=== PATIENT | male | born 1935 | race Caucasian/White ===

== ENCOUNTER 2022-02-20 05:27 | Inpatient (IN) | payer OTHER, BC ==
[~2022-02-20] VITALS: Ht 182.9 cm; Wt 81.6 kg
[~2022-02-20 05:27] MED LIST: APIX5TAB4 PO; CARB1TAB21 PO; CARV3.1246 PO; FURO-150 PO; MIRA50TA PO; PIPE3.379 IV; POLY17PO4 PO; POTA8TAB66 PO; PRAV10TA37 PO
[2022-02-20 05:31] VITALS: BP_SYST 116
[2022-02-20] MEDS ORDERED: PRED10TA PO (05:36)
[2022-02-20] MEDS ORDERED: ATOR10TA68 PO (05:37)
[2022-02-20] MEDS ORDERED: MULT-1189 PO (05:41)
[2022-02-20] MEDS ORDERED: ACET325T PO (05:42)
--- NOTE | 2022-02-20 06:00 | NUR ---
PLACED TO RM 7 VIA GUERNEY, AWAKE AND ALERT RESPONSIVE BUT SLURRED SPEECH.FOLLOWS COMMANDS AND APPROPRIATE TO SIMPLE COMMANDS, NOT IN RESP DISTRESS, ON ROOM AIR, CONNECTED TO BEDSIDE MONITOR, VS TAKEN AND RECORDED, INITIAL ASSESSMENT COMPLETED, WITH MULTIPLE BRUISE ON CHEST, BUE,BLE, SKIN TEARS ON BUE.ABD SOFT GOOD BS, TO ASSESS BACK FOR PRESSURE AREAS. SKIN VERY FRAGILE.
--- NOTE | 2022-02-20 06:15 | NUR ---
IV START AT RT FA G22 S/L.BLOOD COLLECTED AND SENT TO LAB, [id number]
--- NOTE | 2022-02-20 06:24 | NUR ---
0617 DR FERRERA IN THE ROOM SPOKE TO .
--- NOTE | 2022-02-20 06:24 | NUR ---
0620 DR JUAREZ IN THE ROOM AND EXAMINING PATIENT.
[2022-02-20 07:04] LABS: BASOPHILS % (AUTO) 0.5 % (0.0-2.0); EOSINOPHILS # (AUTO) 0.3 K/uL (0.0-0.4); EOSINOPHILS % (AUTO) 4.4 % (0.0-4.0); HEMATOCRIT 33.6 % (36-54); HEMOGLOBIN 11.2 g/dL (14.0-18.0); LYMPHOCYTES % (AUTO) 13.7 % (20.5-51.5); MEAN CORPUSCULAR HEMOGLOBIN 30 pg (27-31); MEAN CORPUSCULAR HGB CONC 33 % (32-36); MEAN CORPUSCULAR VOLUME 90 fL (79.0-98.0); MONOCYTES # (AUTO) 0.6 K/uL (0.0-1.0); NEUTROPHILS # (AUTO) 5.4 K/uL (1.8-7.7); NEUTROPHILS % (AUTO) 73.4 % (40.0-70.0); PLATELET COUNT (AUTO) 223 K/uL (130-430); RED BLOOD CELL COUNT(AUTO) 3.72 MIL/uL (4.2-6.2); RED CELL DISTRIBUTION WIDTH 17.1 % (9.0-15.0); WHITE BLOOD COUNT (AUTO) 7.4 K/uL (4.8-10.8)
[2022-02-20 07:08] LABS: ANION GAP 9 (5-15); CHLORIDE 110 mmol/L (98-107); CREATININE 0.71 mg/dL (0.55-1.30); GLUCOSE 135 mg/dL (70-99); SODIUM SERUM 145 mmol/L (136-145); UREA NITROGEN, BLOOD 21 mg/dL (8-21)
[2022-02-20 07:12] LABS: INR 1.3 (0.80-1.20); PROTHROMBIN TIME 13.1 SECS (9.5-12.5)
[2022-02-20] MEDS ORDERED: POTASSIUM CHLORIDE 20 MEQ/PKT PACKET PO ONE (07:15)
[2022-02-20] MEDS ORDERED: KCL 40 mEq in 100 mL (PREMIX) 100 ML IV ONE ×2 (07:15→08:15)
--- NOTE | 2022-02-20 07:21 | NUR ---
AWARE OF K+ RESULT, ORDERS PLACED.
--- NOTE | 2022-02-20 07:21 | NUR ---
REPORT RC'VD FROM OUTGOING NOC RN, ALL CARES ASSUMED. INTRODUCTION MADE TO PATIENT AND WHO REMAINS AT BEDSIDE.
[2022-02-20 07:25] LABS: ACETAMINOPHEN 1 ug/mL (1-30); ALANINE AMINOTRANSFERASE 0 U/L (12-78); ALBUMIN 2.1 g/dL (3.4-4.8); ASPARTATE AMINOTRANSFERASE 16 U/L (10-37); TOTAL BILIRUBIN 0.6 mg/dL (0.0-1.0)
[2022-02-20 07:26] LABS: C-REACTIVE PROTEIN QUANT 5.1 mg/dL (0-0.5)
[2022-02-20 07:27] LABS: POTASSIUM 2.7 mmol/L (3.5-5.1)
--- NOTE | 2022-02-20 07:49 | NUR ---
Assumed care of patient. Assessment completed, patient in no signs of acute distress. Removed dressings, visualized wounds. Pressure injury with skin breakdown visualized on the patient's coccyx. Mepilex dressings applied. Mepilex dressings applied to skin tears located on L heller, L upper/mid thigh, L wrist, L lateral forearm, R hand, R wrist.
[2022-02-20 08:00] LABS: ACETONE, SERUM NEGATIVE (NEGATIVE)
[2022-02-20] MEDS ORDERED: D5/0.45 NS 1,000 ML IV ONE (08:15)
--- NOTE | 2022-02-20 08:22 | NUR ---
ORDERS RCVD FOR ADMISSION FROM DR. SUE, ORDERS PLACED AND MD TO COME AND SEE PATIENT ONCE ADMITTED TO FLOOR. CHARGE AWARE OF ADMIT. PENDING BED PLACEMENT.
--- NOTE | 2022-02-20 08:22 | NUR ---
Admit bed requested Patient will be admitted to care of Dr. Munroe Admitted to unit. Diagnosis Inpatient (Yes or No) Observation (Yes or No) Orientation concerns or request close to nursing station (Yes or No) Covid Status On vent or bipap Isolation requirements Needs a sitter From Home (Yes or if No enter name of facility) SNF Requires Dialysis (Yes or No) Med Rec Completed (Yes of No)
--- NOTE | 2022-02-20 08:25 | NUR ---
Med rec completed
--- NOTE | 2022-02-20 08:26 | NUR ---
Covid and MRSA swab collected and brought to lab
--- NOTE | 2022-02-20 08:26 | NUR ---
Consent obtained from for Midline
--- NOTE | 2022-02-20 09:45 | NUR ---
PATIENT ADMITTED FROM ER, ARRIVED IN [facility], SPEECH IS SLURRED/GARBLED BUT PER REPORT PATIENT HAS PARKINSON DISEASE AND HISTORY OF POLIO A CHILD. ORDER FOR MIDLINE AND WOUND CARE IN AND CONSENT IN CHART, A/OX2, VITALS STABLE, MULTIPLE WOUNDS, WILL TAKE PICTURES, AIR LOSS MATTRESS IN PLACE. WILL PROPERLY ADMIT TO THE FLOOR.
--- NOTE | 2022-02-20 09:47 | NUR ---
Patient will be admitted to care of DR. SUE. Admitted to unit. Will go to room . Belongings list completed. Complete and up to date summary report printed. SBAR report to be given at bedside with opportunity for questions.
[2022-02-20] MEDS ORDERED: POTASSIUM CHLORIDE 40 MEQ, LIDOCAINE JECT 2% PF 100 MG 75 MG in 0.45% NS 250 ML IV ONE (10:00)
--- NOTE | 2022-02-20 15:00 | NUR ---
WAS UNAVAILABLE EARLIER, NOW AT BEDSIDE SO ABLE TO GO OVER PLAN OF CARE AND FINISH ADMISSION.
[2022-02-20] MEDS ORDERED: ACETAMINOPHEN 325 MG TABLET PO PRN (15:30)
[2022-02-20] MEDS ORDERED: ACETAMINOPHEN 650 MG SUPP.RECT RC PRN (15:45)
--- NOTE | 2022-02-20 15:59 | NUR ---
CONSULTATION PAGED/CALLED Reason for Consultation: [] ON TELE, AFIB, PACEMAKER Person Who was Notified: [] FAUSTO Consulting Physician: [] DR TO Rn Ed Specialty: [] CARDIO Ordering Physician: [] DR SUE
--- NOTE | 2022-02-20 16:02 | NUR ---
CONSULTATION PAGED/CALLED Reason for Consultation: [] POSS PNA Person Who was Notified: [] FAUSTO Consulting Physician: [] DR CHERRY LAUGHLIN Orthopedic Radiologic Technologist Specialty: [] ID Ordering Physician: [] DR SUE
[2022-02-20 16:21] VITALS: BP_SYST 110
[2022-02-20 21:00] VITALS: BP_SYST 119
[2022-02-20] MEDS: CARBIDOPA/LEVODOPA 25/100 MG TABLET PO SCH (21:00)
[2022-02-20] MEDS: APIXABAN 2.5 MG TABLET PO SCH (21:00)
[2022-02-20] MEDS ORDERED: PRAVASTATIN SODIUM 10 MG TABLET (PRAVACHOL) PO SCH (21:00)
[2022-02-20] MEDS: CARVEDILOL 3.125 MG TABLET (COREG) PO SCH (21:00)
[2022-02-21] VITALS: BP_SYST 98
--- NOTE | 2022-02-21 04:41 | NUR ---
MIDLINE IV ORDER GIVEN TO DESIGN MANAGER / .
[2022-02-21 06:10] LABS: BASOPHILS % (AUTO) 0.6 % (0.0-2.0); EOSINOPHILS # (AUTO) 0.3 K/uL (0.0-0.4); EOSINOPHILS % (AUTO) 3.9 % (0.0-4.0); HEMATOCRIT 32.6 % (36-54); LYMPHOCYTES # (AUTO) 1.3 K/uL (1.0-5.5); LYMPHOCYTES % (AUTO) 16.9 % (20.5-51.5); MEAN CORPUSCULAR HEMOGLOBIN 30 pg (27-31); MEAN CORPUSCULAR HGB CONC 34 % (32-36); MEAN CORPUSCULAR VOLUME 89 fL (79.0-98.0); MONOCYTES # (AUTO) 0.8 K/uL (0.0-1.0); MONOCYTES % (AUTO) 10.1 % (1.7-9.3); NEUTROPHILS # (AUTO) 5.2 K/uL (1.8-7.7); NEUTROPHILS % (AUTO) 68.5 % (40.0-70.0); PLATELET COUNT (AUTO) 245 K/uL (130-430); RED BLOOD CELL COUNT(AUTO) 3.66 MIL/uL (4.2-6.2); RED CELL DISTRIBUTION WIDTH 16.6 % (9.0-15.0); WHITE BLOOD COUNT (AUTO) 7.6 K/uL (4.8-10.8)
[2022-02-21 07:47] LABS: ALANINE AMINOTRANSFERASE 12 U/L (12-78); ALBUMIN 2.3 g/dL (3.4-4.8); ANION GAP 11 (5-15); ASPARTATE AMINOTRANSFERASE 11 U/L (10-37); CALCIUM 8.7 mg/dL (8.4-11.0); CHLORIDE 111 mmol/L (98-107); GLUCOSE 116 mg/dL (70-99); SODIUM SERUM 146 mmol/L (136-145); UREA NITROGEN, BLOOD 20 mg/dL (8-21)
[2022-02-21 07:59] LABS: POTASSIUM 2.6 mmol/L (3.5-5.1); TOTAL BILIRUBIN 0.8 mg/dL (0.0-1.0)
[2022-02-21] MEDS: CARBIDOPA/LEVODOPA 25/100 MG TABLET PO SCH ×3 (09:00→22:13)
[2022-02-21] MEDS: predniSONE 10 MG TABLET PO SCH (09:00)
[2022-02-21] MEDS ORDERED: NON-FORMULARY MEDICATION (Mirabegron (Myrbetriq) 50 MG) PO SCH (09:00)
[2022-02-21] MEDS ORDERED: POTASSIUM CHLORIDE 8 MEQ TABLET.SA PO SCH (09:00)
[2022-02-21] MEDS: MULTIVITS,CA,MINERALS/IRON/FA 1 TABLET PO SCH (09:00)
[2022-02-21] MEDS: APIXABAN 2.5 MG TABLET PO SCH ×2 (09:00→22:13)
[2022-02-21] MEDS: CARVEDILOL 3.125 MG TABLET (COREG) PO SCH ×2 (09:00→22:14)
[2022-02-21] MEDS: ATORVASTATIN 10 MG TABLET PO SCH (09:00)
[2022-02-21 11:32] VITALS: BP_SYST 100
[2022-02-21] MEDS ORDERED: KCL 40 mEq in 100 mL (PREMIX) 100 ML IV ONE (13:00)
[2022-02-21] MEDS: POTASSIUM CHLORIDE 20 mEq in 100 mL (PREMIX) 100 ML x 2 doses IV SCH ×3 (14:58→22:12)
[2022-02-21] MEDS ORDERED: FUROSEMIDE 20 MG/2 ML VIAL IVP ONE (15:30)
[2022-02-21 15:57] VITALS: BP_SYST 101
[2022-02-21] MEDS ORDERED: KCL 20 mEq in 100 mL (PREMIX) 100 ML IV ONE (17:00)
--- NOTE | 2022-02-21 18:06 | NUR ---
ST EVALUATION COMPLETED. ST TX NOT INDICATED AT THIS TIME. RECOMMEND PO DIET OF PUREE/NECTAR THICK LIQUIDS. 1:1 FEEDER AND FULL ASPIRATION PRECAUTIONS.
[2022-02-21 20:00] VITALS: BP_SYST 116
--- NOTE | 2022-02-21 22:51 | NUR ---
MID LINE IV PLACEMENT IMPLEMENTED @ THE BEDSIDE DANIA , NO BLEEDING NOTED tolerated .
[2022-02-21 23:44] VITALS: BP_SYST 128
--- NOTE | 2022-02-22 02:44 | NUR ---
Hourly Rounding patient awake on and off HOB elevated chest movement shallow also symmetrical bed alarm is on position change tolerated .
--- NOTE | 2022-02-22 03:30 | NUR ---
Turning & Reposition patient off loading with pillows kept clean also dry as needed Respirations Remain Regular also unlabored activity tolerated .
[2022-02-22 05:37] LABS: BASOPHILS % (AUTO) 0.6 % (0.0-2.0); EOSINOPHILS # (AUTO) 0.3 K/uL (0.0-0.4); HEMATOCRIT 30.6 % (36-54); HEMOGLOBIN 10.2 g/dL (14.0-18.0); LYMPHOCYTES # (AUTO) 0.9 K/uL (1.0-5.5); LYMPHOCYTES % (AUTO) 16.8 % (20.5-51.5); MEAN CORPUSCULAR HEMOGLOBIN 30 pg (27-31); MEAN CORPUSCULAR HGB CONC 33 % (32-36); MEAN CORPUSCULAR VOLUME 89 fL (79.0-98.0); MONOCYTES # (AUTO) 0.4 K/uL (0.0-1.0); MONOCYTES % (AUTO) 7.8 % (1.7-9.3); NEUTROPHILS # (AUTO) 3.7 K/uL (1.8-7.7); NEUTROPHILS % (AUTO) 68.8 % (40.0-70.0); PLATELET COUNT (AUTO) 209 K/uL (130-430); RED BLOOD CELL COUNT(AUTO) 3.43 MIL/uL (4.2-6.2); RED CELL DISTRIBUTION WIDTH 16.6 % (9.0-15.0); WHITE BLOOD COUNT (AUTO) 5.4 K/uL (4.8-10.8)
[2022-02-22 06:34] LABS: ANION GAP 9 (5-15); CALCIUM 7.7 mg/dL (8.4-11.0); CHLORIDE 111 mmol/L (98-107); CREATININE 0.66 mg/dL (0.55-1.30); GLUCOSE 127 mg/dL (70-99); SODIUM SERUM 147 mmol/L (136-145); UREA NITROGEN, BLOOD 18 mg/dL (8-21)
[2022-02-22 06:54] LABS: POTASSIUM 2.4 mmol/L (3.5-5.1)
--- NOTE | 2022-02-22 07:00 | NUR ---
OPENING NOTE RECEIVED SBAR FROM NIGHT RN, PATIENT IN BED RESPIRATIONS EVEN, NON LABORED. BED IN LOW AND LOCKED POSITION, CALL LIGHT WITHIN REACH.
[2022-02-22 08:00] VITALS: BP_SYST 90
--- NOTE | 2022-02-22 08:25 | NUR ---
HIGH ALERT NOTE: Called Dr. Munroe back at [phone] identified within the medical roster to verify physician authenticity.
[2022-02-22] MEDS ORDERED: COMMUNICATION ORDER XX ONE (08:30)
[2022-02-22] MEDS: CARVEDILOL 3.125 MG TABLET (COREG) PO SCH ×2 (09:00→21:00)
[2022-02-22] MEDS ORDERED: POTASSIUM CHLORIDE 20 MEQ TAB.PRT.SR PO ONE (09:30)
[2022-02-22] MEDS: CARBIDOPA/LEVODOPA 25/100 MG TABLET PO SCH ×3 (09:49→22:52)
[2022-02-22] MEDS: predniSONE 10 MG TABLET PO SCH (09:49)
[2022-02-22] MEDS: MULTIVITS,CA,MINERALS/IRON/FA 1 TABLET PO SCH (09:51)
[2022-02-22] MEDS: APIXABAN 2.5 MG TABLET PO SCH ×2 (09:51→22:54)
[2022-02-22] MEDS: ATORVASTATIN 10 MG TABLET PO SCH (09:54)
[2022-02-22] MEDS ORDERED: POTASSIUM CHLORIDE 60 MEQ in NS 500 ML IV ONE (10:00)
--- NOTE | 2022-02-22 11:27 | NUR ---
Dietitian Recommendations * Continue w/ pureed NTL diet * Encourage PO intake * Consider appetite stimulant * Alternate mode of nutrition maybe warranted if PO intake remains poor. Please refer to Nutrition Assessment for details. Addendum: 02/22/22 at [address] Amended: Links added.
--- NOTE | 2022-02-22 12:00 | NUR ---
WOUND CARE PROVIDED WOUND CARE, BED BATH, CHANGED LINENS, REPOSITIONED PATIENT. PATIENT TOLERATED WELL, DENIED ANY PAIN OR DISCOMFORT. BED IN LOW AND LOCKED POSITION, CALL LIGHT WITHIN REACH. PATIENTS BEDSIDE.
[2022-02-22 12:59] VITALS: BP_SYST 101
--- NOTE | 2022-02-22 15:12 | NUR ---
HIGH ALERT NOTE: Called Dr. SUE back at [phone] identified within the medical roster to verify physician authenticity.
[2022-02-22 16:24] VITALS: BP_SYST 121
[2022-02-22 17:34] VITALS: BP_SYST 96
--- NOTE | 2022-02-22 17:35 | NUR ---
MRSA NARES PLACED ON CONTACT ISOLATION DUE TO MRSA NARES POSITIVE, ON BACTROBAN OINTMENT ORDERED. AT BEDSIDE AND MADE AWARE. TEACHING RE MRSA PROVIDED TO HIS .
--- NOTE | 2022-02-22 18:02 | NUR ---
MD ORDERS SPOKE WITH DR SUE, PATIENT REQUESTING PAIN MEDICATION BUT DOES NOT WANT SUPPOSITORY. NEW ORDERS RECEIVED.
[2022-02-22] MEDS: ACETAMINOPHEN 325 MG TABLET PO PRN (18:23)
--- NOTE | 2022-02-22 19:14 | NUR ---
closing notes PROVIDED SBAR TO NIGHT COMMUNICATIONS CLERK, PATIENT IN BED RESPIRATIONS EVEN, SHALLOW. ROOM AIR, MIDLINE IS PATENT AND RUNNING TKO. BED IN LOW AND LOCKED POSITION, CALL LIGHT WITHIN REACH, BED ALARM ON. ENDORSED CARE TO NIGHT COMMUNICATIONS CLERK.
--- NOTE | 2022-02-22 19:30 | NUR ---
OPENING NOTE PT IS SEMI FOWLERS TURNED ONTO HIS LEFT SIDE, BEDSIDE. NO APPARENT DISTRESS NOTED AT THIS TIME. BED IS IN LOWEST POSITION WITH FALL AND SAFETY PRECAUTIONS IN PLACE. CALL LIGHT IS WITHIN REACH.
[2022-02-22] MEDS: POTASSIUM CHLORIDE 20 MEQ TAB.PRT.SR PO SCH (22:50)
[2022-02-22] MEDS: MUPIROCIN 2% TOPICAL OINTMENT 22 GM NS SCH (22:53)
[2022-02-23 00:33] VITALS: BP_SYST 111
[2022-02-23 06:50] LABS: ANION GAP 11 (5-15); CALCIUM 7.8 mg/dL (8.4-11.0); CHLORIDE 112 mmol/L (98-107); CREATININE 0.58 mg/dL (0.55-1.30); POTASSIUM 3.3 mmol/L (3.5-5.1); SODIUM SERUM 145 mmol/L (136-145); UREA NITROGEN, BLOOD 18 mg/dL (8-21)
[2022-02-23 07:17] LABS: GLUCOSE 130 mg/dL (70-99)
[2022-02-23 08:00] VITALS: BP_SYST 121
[2022-02-23] MEDS: ATORVASTATIN 10 MG TABLET PO SCH (08:33)
[2022-02-23] MEDS: MULTIVITS,CA,MINERALS/IRON/FA 1 TABLET PO SCH (08:33)
[2022-02-23] MEDS: predniSONE 10 MG TABLET PO SCH (08:34)
[2022-02-23] MEDS: POTASSIUM CHLORIDE 20 MEQ TAB.PRT.SR PO SCH ×2 (08:35→21:56)
[2022-02-23] MEDS: CARBIDOPA/LEVODOPA 25/100 MG TABLET PO SCH ×3 (08:35→21:57)
[2022-02-23] MEDS: CARVEDILOL 3.125 MG TABLET (COREG) PO SCH ×2 (08:35→22:09)
[2022-02-23] MEDS: APIXABAN 2.5 MG TABLET PO SCH (08:36)
[2022-02-23] MEDS: MUPIROCIN 2% TOPICAL OINTMENT 22 GM NS SCH ×2 (08:37→21:56)
--- NOTE | 2022-02-23 11:42 | NUR ---
Discharge Planning: DCP faxed pt referral to [facility] P#[phone] F#[phone] DCP to follow up Addendum: 02/23/22 at 1637 by Kanwal Alonzo DP [facility] P#[phone] F#[phone] accepted pt to [facility]
--- NOTE | 2022-02-23 12:00 | NUR ---
Pt noted with moderate amount of blood in stool, unable to collect for testing since it has been absorbed in chux pad. Pt states no discomfort or pain from abdomen. Pt's , Aviva, at bedside describing that pt has "hemorrhoids and problems from his rectum" and suspects 'blood is from hemorrhoids." Performed juan care and linen change.
[2022-02-23 12:32] VITALS: BP_SYST 117
--- NOTE | 2022-02-23 14:56 | NUR ---
CONSULT: Markie ZHAO IS COVER FOR DR. PETERSON [phone] S/W:SAMANTHA RAMESH
--- NOTE | 2022-02-23 16:22 | NUR ---
WOUND EVALUATION: Late note for 02/23/2022 at 1622 secondary to patient care. Wound Consult received from Dr. Munroe. Thank you, Dr. Munroe, for the consult. Patient received in a [place] Bed with a mattress, awake, drowsy, confused. Patient is unable to turn in bed independently. Luis Fernando Score is an 11. Past Medical History: Recent Pneumonia, Parkinson's Disease, Dementia, Hyperlipidemia, cellulitis of lower extremities with multiple wounds, Chronic Atrial Fibrillation, permanent pacemaker placement, advanced Parkinson's condition with early Dementia, bedbound status, history of Hypertension and Hyperlipidemia. Recent Labs: WBC 12.6, RBC 3.31, hemoglobin 9.9, hematocrit 30.2, potassium 3.3, chloride 112, glucose 130, calcium 7.8, albumin 2.3, serum total protein 5.4, PT 13.1, INR 1.3. Microbiology: Blood culture results x2 in progress. MRSA screen results positive. Stool occult blood results positive. Intrinsic factors that delay wound healing: Chronic Atrial Fibrillation, Hypoalbuminemia, Hyperglycemia. Extrinsic factors that delay wound healing: Decreased mobility. Per Assessment by Dr. Portillo: "Bilateral Pneumonia, advanced Parkinson's condition, bedbound status for years, history of recent cellulitis in the lower extremities, status post permanent pacemaker placement, Chronic Atrial Fibrillation, previous Cerebrovascular Accident, Eliquis therapy. Long-term prognosis is guarded." Wound Assessment: 1. Sacral-Coccygeal area: Unstageable pressure ulcer, present on admission. Wound bed has 95% yellow slough, 5% red tissue. No odor, scant yellow drainage. Periwound intact. Wound measures 5.5 cm x 1.0 cm. Recommend: Cleanse wound with normal saline. Apply moisture barrier cream to periwound. Apply Venelex ointment to wound bed. Cover site with sacral foam dressing. Perform wound care daily, and as needed for dressing soiling or dislodgment. 2. Left Lateral Bicep: Skin tear, present on admission. Wound bed has 100% red tissue with small residual flap present. Perimeter of skin tear intact. Skin tear measures 1.2 cm x 1.1 cm. 3. Left Lateral Elbow: Brown scab, present on admission. No odor, no drainage. Dry, stable. 4. Left Proximal Forearm: Skin tear, present on admission. Skin tear bed has 100% dull red tissue. No odor, no drainage. Perimeter of skin tear intact. Skin tear measures 0.5 cm x 1.0 cm. 5. Left Forearm, Distal to Site 4: Skin tear, present on admission. Skin tear bed has 100% dull red tissue. No odor, no drainage. Perimeter of skin tear intact. Skin tear measures 3.9 cm x 2.9 cm. 6. Left Distal Dorsal Forearm: Skin tear, present on admission. Skin tear bed has 80% yellow tissue, 15% black skin, 5% pink tissue. No odor, no drainage. Perimeter of skin tear intact. Skin tear measures 1.4 cm x 2.3 cm. Recommend: Cleanse skin tears with normal saline. Apply Sureprep to perimeter of skin tears. Apply hydrogel to skin tear sites. Cover skin tears with nonadhesive foam dressings. Wrap with Bart wrap. Perform site care daily, and as needed for dressing soiling or dislodgment. 7. Right Lateral Forearm: 2 small open skin tears/fissures, present on admission. Open area has 100% red tissue. No odor, scant serous drainage. Periwound intact. Site measures 1.3 cm x 1.1 cm. 8. Right Posterior Forearm: Skin tear, present on admission. Skin tear has 100% red tissue. No odor, no drainage. Perimeter of skin tear intact. Skin tear measures 1.7 cm x 2.0 cm. 9. Right Distal Dorsal Wrist: Skin tear, present on admission. Skin tear has 95% yellow tissue, 5% red tissue. No odor, no drainage. Perimeter of skin tear intact. Skin tear measures 6.4 cm x 2.1 cm. 10. Right Dorsal Hand: Skin tear, present on admission. Skin tear has 100% yellow tissue. No odor, no drainage. Perimeter of skin tear area intact. Skin tear measures 3.1 cm x 2.1 cm. Recommend: Cleanse skin tears with normal saline. Apply Sureprep to perimeter of skin tears. Apply hydrogel to skin tear sites. Cover skin tears with nonadhesive foam dressings. Wrap with Bart wrap. Perform site care daily, and as needed for dressing soiling or dislodgment. 11. Left Anterior Thigh: Skin tear, present on admission. Skin tear has 90% percent yellow tissue, 5% red tissue. No odor, no drainage. Ecchymosis present on superior aspect of skin tear site, open area present at inferior aspect of skin tear site. Skin tear site measures 2.3 cm x 2.4 cm. 12. Left Distal Medial Thigh: Skin tear, present on admission. Skin tear bed has 70% yellow tissue, 30% dark pink tissue. Dark discolored residual skin flap present. Skin tear site measures 6.6 cm x 7.0 cm. 13. Left Distal Anterior Thigh, Superior to Knee: Skin tear, present on admission. Skin tear site has 90% yellow tissue, 10% red tissue. No odor, no drainage. Perimeter of skin tear site intact. Skin tear measures 0.8 cm x 2.6 cm. 14. Left Distal Lateral Anterior Thigh: Black scab, present on admission. Dry, stable. Recommend: Cleanse skin tears with normal saline. Apply Sureprep to perimeter of skin tears. Apply hydrogel to skin tear sites. Cover skin tears with nonadhesive foam dressings. Wrap with Bart wrap. Perform site care daily, and as needed for dressing soiling or dislodgment. 15. Left Knee: Black scab, present on admission. Dry, stable. 16. Left [place], Inferior to knee: Skin tear, present on admission. Skin tear site has 90% yellow tissue, 10% red tissue. No odor, no drainage. Periperimeter of skin tear area intact. Dark discolored skin and black scab present at inferior aspect of skin tear site. Skin tear site measures 2.4 cm x 4.4 cm. 17. Left Knee, Distal to Site 16: Brown scab, present on admission. Dry, stable. Recommend: No dressings needed. Continue to monitor sites every shift. Also recommend: Encourage and assist patient with repositioning side to side only every 2 hours with pillow support and off-load pressure areas with pillows for pressure re-distribution. Offload, elevate and float bilateral heels with pillows. Perform skin care and monitor skin integrity Q shift. Use moisture barrier cream on buttocks and other moisture susceptible areas QID and as needed for soiling. Place patient on a low air-loss mattress.
--- NOTE | 2022-02-23 16:30 | NUR ---
Pt noted with large amount bloody stool at 1445 and also performed extensive wound care with wound care nurse. Pt still noted to have bloody stools. Dr. Kramer also present at one point at bedside, shown bloody stool. Aviva present at bedside.
[2022-02-23 18:00] LABS: BASOPHILS % (AUTO) 0.3 % (0.0-2.0); EOSINOPHILS # (AUTO) 0.3 K/uL (0.0-0.4); EOSINOPHILS % (AUTO) 2.2 % (0.0-4.0); HEMATOCRIT 30.2 % (36-54); HEMOGLOBIN 9.9 g/dL (14.0-18.0); LYMPHOCYTES # (AUTO) 1.9 K/uL (1.0-5.5); LYMPHOCYTES % (AUTO) 14.7 % (20.5-51.5); MEAN CORPUSCULAR HEMOGLOBIN 30 pg (27-31); MEAN CORPUSCULAR HGB CONC 33 % (32-36); MEAN CORPUSCULAR VOLUME 91 fL (79.0-98.0); NEUTROPHILS # (AUTO) 9.4 K/uL (1.8-7.7); NEUTROPHILS % (AUTO) 74.8 % (40.0-70.0); PLATELET COUNT (AUTO) 226 K/uL (130-430); RED BLOOD CELL COUNT(AUTO) 3.31 MIL/uL (4.2-6.2); RED CELL DISTRIBUTION WIDTH 17.2 % (9.0-15.0); WHITE BLOOD COUNT (AUTO) 12.6 K/uL (4.8-10.8)
--- NOTE | 2022-02-23 18:38 | NUR ---
Closing/Code Status Pt up in bed eating dinner, Aviva at bedside. Regarding decision on code status, Aviva states she "would like to think it over and reconvene tomorrow." Will endorse plan of care to RN.
[2022-02-23] MEDS: ACETAMINOPHEN 325 MG TABLET PO PRN (18:45)
[2022-02-23] MEDS ORDERED: LEVOFLOXACIN 250 MG/D5W 50 ML IV ONE (21:54)
[2022-02-23] MEDS: HYDROCORTISONE ACETATE 1 SUPP (ANUSOL HC) RC SCH (21:56)
[2022-02-23] MEDS: LEVOFLOXACIN 250 MG/D5W 50 ML IV SCH (22:08)
[2022-02-24 00:07] VITALS: BP_SYST 96
[2022-02-24 06:45] LABS: BASOPHILS % (AUTO) 0.5 % (0.0-2.0); EOSINOPHILS # (AUTO) 0.1 K/uL (0.0-0.4); EOSINOPHILS % (AUTO) 1.4 % (0.0-4.0); HEMATOCRIT 23.8 % (36-54); HEMOGLOBIN 8.2 g/dL (14.0-18.0); LYMPHOCYTES # (AUTO) 1.3 K/uL (1.0-5.5); LYMPHOCYTES % (AUTO) 15.7 % (20.5-51.5); MEAN CORPUSCULAR HEMOGLOBIN 31 pg (27-31); MEAN CORPUSCULAR HGB CONC 34 % (32-36); MEAN CORPUSCULAR VOLUME 89 fL (79.0-98.0); MONOCYTES # (AUTO) 0.6 K/uL (0.0-1.0); MONOCYTES % (AUTO) 7.1 % (1.7-9.3); NEUTROPHILS # (AUTO) 6.5 K/uL (1.8-7.7); NEUTROPHILS % (AUTO) 75.3 % (40.0-70.0); PLATELET COUNT (AUTO) 220 K/uL (130-430); RED BLOOD CELL COUNT(AUTO) 2.66 MIL/uL (4.2-6.2); RED CELL DISTRIBUTION WIDTH 16.9 % (9.0-15.0); WHITE BLOOD COUNT (AUTO) 8.6 K/uL (4.8-10.8)
[2022-02-24 07:03] LABS: ANION GAP 11 (5-15); CALCIUM 7.2 mg/dL (8.4-11.0); CHLORIDE 116 mmol/L (98-107); CREATININE 0.92 mg/dL (0.55-1.30); GLUCOSE 139 mg/dL (70-99); POTASSIUM 4.1 mmol/L (3.5-5.1); SODIUM SERUM 147 mmol/L (136-145); UREA NITROGEN, BLOOD 35 mg/dL (8-21)
[2022-02-24 08:00] VITALS: BP_SYST 98
--- NOTE | 2022-02-24 08:00 | NUR ---
INITIAL NOTES PATIENT IN BED, EYES CLOSED RESTING. AROUSED TO NAME. PATIENT ON ROOM AIR, SPO2 AT 99%. NO S/S OF DISTRESS. PATIENT DENIES ANY PAIN. SAFETY PRECAUTIONS IN PLACE AND CALL LIGHT WITHIN REACH.
[2022-02-24] MEDS ORDERED: MINERAL OIL 133 ML ENEMA RC ONE (08:15)
[2022-02-24] MEDS ORDERED: MAGNESIUM CITRATE 300 ML ORAL SOLUTION PO ONE (08:15)
[2022-02-24] MEDS: CARVEDILOL 3.125 MG TABLET (COREG) PO SCH ×2 (09:00→20:38)
[2022-02-24] MEDS: MUPIROCIN 2% TOPICAL OINTMENT 22 GM NS SCH ×2 (10:29→20:39)
[2022-02-24] MEDS: MULTIVITS,CA,MINERALS/IRON/FA 1 TABLET PO SCH (10:30)
[2022-02-24] MEDS: ATORVASTATIN 10 MG TABLET PO SCH (10:30)
[2022-02-24] MEDS: POLYETHYLENE GLYCOL 3350, 17 GM/ POWD.PACK PO SCH ×2 (10:30→20:38)
[2022-02-24] MEDS: predniSONE 10 MG TABLET PO SCH (10:31)
[2022-02-24] MEDS: CARBIDOPA/LEVODOPA 25/100 MG TABLET PO SCH ×3 (10:31→20:38)
[2022-02-24] MEDS: POTASSIUM CHLORIDE 20 MEQ TAB.PRT.SR PO SCH ×2 (10:32→20:37)
--- NOTE | 2022-02-24 12:00 | NUR ---
NOTES PATIENT HAS BEEN CLEANED AND REPOSITIONED. PATIENT HAD BOWEL MOVEMENT, APPEARS BLOODY . WILL CONTINUE TO MONITOR. SAFETY PRECAUTIONS IN PLACE. CALL LIGHT WITHIN REACH.
[2022-02-24 12:33] VITALS: BP_SYST 104
--- NOTE | 2022-02-24 14:59 | NUR ---
Discharge Planning: [facility] faxed pt referral to [facility]#[phone] DCP to follow up. Addendum: 02/24/22 at 1559 by Kanwal Alonzo DP [facility]#[phone] will accept pt pending 's approval. will tour Sunday. CHASITYP made CM aware.
--- NOTE | 2022-02-24 16:00 | NUR ---
NOTES PATIENT IN BED, RESTING. EYES NO COMPLAINTS OF PAIN OR DISTRESS NOTED. SAFETY PRECAUTIONS IN PLACE AND CALL LIGHT WITHIN REACH. FAMILY AT BEDSIDE.
[2022-02-24 16:32] VITALS: BP_SYST 101
[2022-02-24] MEDS: ACETAMINOPHEN 325 MG TABLET PO PRN (18:03)
--- NOTE | 2022-02-24 18:26 | NUR ---
CLOSING NOTES PATENT IN BED. AT BEDSIDE. PATIENT IS EATING DINNER, HEAD OF THE BED IS ELEVATED. NO DISTRESS NOTED. NO SOB. PATIENT IS COMFORTABLE. SAFETY PRECAUTIONS IN PLACE AND CALL LIGHT WITHIN REACH.
[2022-02-24] MEDS: BALSAM PERU/CASTOR OIL 56.7 GM OINT...G. TP SCH (18:30)
--- NOTE | 2022-02-24 19:30 | NUR ---
Initial note At initial assessment, patient is resting in bed, stable, no signs of respiratory distress. Patient verbalizes no pain. Plan of care for the evening is communicated with the patient and his at bedside. Patient is unable to demonstrate correct usage of call light at this time due to cognitive impairment; frequent rounding will be completed throughout the night to meet all patient needs. Bed is locked, alarmed, and at the lowest level. Fall safety education provided. Patient will be turned [id number] throughout the shift. Fall, safety, aspiration, isolation, and respiratory precautions will be taken throughout the shift.
[2022-02-24 19:45] VITALS: BP_SYST 95
--- NOTE | 2022-02-24 20:30 | NUR ---
Med pass note Scheduled medications given at this time; patient tolerated well. Call light is placed within reach. Bed is locked, alarmed, and at the lowest level.
[2022-02-24] MEDS: MINERAL OIL 30 ML UDC PO SCH (20:37)
[2022-02-24] MEDS: LEVOFLOXACIN 250 MG/D5W 50 ML IV SCH (20:38)
[2022-02-24] MEDS: HYDROCORTISONE ACETATE 1 SUPP (ANUSOL HC) RC SCH (20:39)
--- NOTE | 2022-02-24 21:45 | NUR ---
Hygiene care note Patient had bowel movement; there is also some blood noted, like from hemorrhoid rupture. Hygiene care is provided at this time, fresh linens provided, and patient is repositioned for comfort. Patient tolerated well. Call light placed within reach. Bed is locked, alarmed, and at the lowest level.
[2022-02-25] VITALS: BP_SYST 95
--- NOTE | 2022-02-25 01:20 | NUR ---
Wound care note Wound is provided at this time, hygiene care also provided. Patient tolerated well. Call light placed within reach. Bed is locked, alarmed, and at the lowest level.
--- NOTE | 2022-02-25 06:22 | NUR ---
Closing Note Patient had about 3 bloody stools during the shift, moderate size, dark red/slightly brown with some clumps noted. He slept well during the shift, he remains mostly confused. At this time, patient is resting in bed, stable, no signs of respiratory distress. Call light placed within reach. Bed is locked, alarmed, and at the lowest level. Patient has been turned [id number] during the shift. Fall, safety, aspiration, respiratory, and isolation precautions have been in placed throughout the shift. Will continue to monitor until report is given at bedside to am nurse.
[2022-02-25 08:00] VITALS: BP_SYST 120
[2022-02-25] MEDS: CARVEDILOL 3.125 MG TABLET (COREG) PO SCH ×2 (08:42→20:42)
[2022-02-25] MEDS: predniSONE 10 MG TABLET PO SCH (08:43)
[2022-02-25] MEDS: ATORVASTATIN 10 MG TABLET PO SCH (08:43)
[2022-02-25] MEDS: POTASSIUM CHLORIDE 20 MEQ TAB.PRT.SR PO SCH ×2 (08:43→20:39)
[2022-02-25] MEDS: POLYETHYLENE GLYCOL 3350, 17 GM/ POWD.PACK PO SCH ×2 (08:43→20:39)
[2022-02-25] MEDS: CARBIDOPA/LEVODOPA 25/100 MG TABLET PO SCH ×3 (08:44→20:39)
[2022-02-25] MEDS: MULTIVITS,CA,MINERALS/IRON/FA 1 TABLET PO SCH (08:44)
[2022-02-25] MEDS: MUPIROCIN 2% TOPICAL OINTMENT 22 GM NS SCH ×2 (08:46→20:42)
[2022-02-25] MEDS: BALSAM PERU/CASTOR OIL 56.7 GM OINT...G. TP SCH (09:00)
[2022-02-25] MEDS: PANTOPRAZOLE SODIUM 40 MG/VIAL (PROTONIX) IVP SCH (09:54)
--- NOTE | 2022-02-25 10:00 | NUR ---
CM: CALL TO ASK WHETHER OR NOT SHE AGREES TO [facility] FOR PLACEMENT FOR REHAB FOR PT, NO RESPONSE, MESSAGE LEFT, WILL CALL AGAIN LATER.
[2022-02-25 11:00] VITALS: BP_SYST 151
[2022-02-25 12:00] VITALS: BP_SYST 136
[2022-02-25 15:35] VITALS: BP_SYST 158
--- NOTE | 2022-02-25 18:43 | NUR ---
Pt had large bloody BM, skin washed and kept clean. Notified DR Cassidy (GI) and obtained order for CBC. order carried out.
--- NOTE | 2022-02-25 19:30 | NUR ---
Initial note At initial assessment, patient is resting in bed, stable, no signs of respiratory distress. Patient verbalizes no pain. Plan of care for the evening is communicated with the patient and his at bedside. Patient is unable to demonstrate correct usage of call light at this time due to cognitive impairment; frequent rounding will be completed throughout the night to meet all patient needs. Bed is locked, alarmed, and at the lowest level. Fall safety education provided. Patient will be turned [id number] throughout the shift. Fall, safety, aspiration, isolation, and respiratory precautions will be taken throughout the shift.
[2022-02-25 19:32] LABS: BASOPHILS % (AUTO) 0.3 % (0.0-2.0); EOSINOPHILS # (AUTO) 0.1 K/uL (0.0-0.4); EOSINOPHILS % (AUTO) 0.9 % (0.0-4.0); HEMATOCRIT 23.3 % (36-54); HEMOGLOBIN 7.8 g/dL (14.0-18.0); LYMPHOCYTES # (AUTO) 0.6 K/uL (1.0-5.5); LYMPHOCYTES % (AUTO) 8.6 % (20.5-51.5); MEAN CORPUSCULAR HEMOGLOBIN 31 pg (27-31); MEAN CORPUSCULAR HGB CONC 34 % (32-36); MEAN CORPUSCULAR VOLUME 92 fL (79.0-98.0); MONOCYTES # (AUTO) 0.4 K/uL (0.0-1.0); MONOCYTES % (AUTO) 5.7 % (1.7-9.3); NEUTROPHILS # (AUTO) 6.1 K/uL (1.8-7.7); NEUTROPHILS % (AUTO) 84.5 % (40.0-70.0); PLATELET COUNT (AUTO) 203 K/uL (130-430); RED BLOOD CELL COUNT(AUTO) 2.54 MIL/uL (4.2-6.2); RED CELL DISTRIBUTION WIDTH 17.1 % (9.0-15.0); WHITE BLOOD COUNT (AUTO) 7.2 K/uL (4.8-10.8)
[2022-02-25 20:00] VITALS: BP_SYST 97
[2022-02-25] MEDS: LEVOFLOXACIN 250 MG/D5W 50 ML IV SCH (20:39)
[2022-02-25] MEDS: ACETAMINOPHEN 325 MG TABLET PO PRN (20:40)
[2022-02-25] MEDS: HYDROCORTISONE ACETATE 1 SUPP (ANUSOL HC) RC SCH (20:41)
[2022-02-25] MEDS: MINERAL OIL 30 ML UDC PO SCH (20:41)
--- NOTE | 2022-02-25 22:05 | NUR ---
Hygiene care note Patient had bowel movement; there is also some dark red/brown blood noted, like from hemorrhoid rupture. Hygiene care is provided at this time, fresh linens provided, and patient is repositioned for comfort. Patient tolerated well. Call light placed within reach. Bed is locked, alarmed, and at the lowest level.
[2022-02-26] VITALS: BP_SYST 94
--- NOTE | 2022-02-26 06:50 | NUR ---
Closing Note Patient had about 1 bloody stool during the shift, dark red/brown in color. He slept well during the shift, although he remains mostly confused. At this time, patient is resting in bed, stable, no signs of respiratory distress. Call light placed within reach. Bed is locked, alarmed, and at the lowest level. Patient has been turned [id number] during the shift. Fall, safety, aspiration, respiratory, and isolation precautions have been in placed throughout the shift. Will continue to monitor until report is given at bedside to am nurse.
[2022-02-26 07:25] LABS: BASOPHILS % (AUTO) 0.2 % (0.0-2.0); EOSINOPHILS # (AUTO) 0.1 K/uL (0.0-0.4); EOSINOPHILS % (AUTO) 0.7 % (0.0-4.0); HEMATOCRIT 25.6 % (36-54); HEMOGLOBIN 8.5 g/dL (14.0-18.0); LYMPHOCYTES # (AUTO) 1.2 K/uL (1.0-5.5); LYMPHOCYTES % (AUTO) 11.1 % (20.5-51.5); MEAN CORPUSCULAR HEMOGLOBIN 31 pg (27-31); MEAN CORPUSCULAR HGB CONC 33 % (32-36); MEAN CORPUSCULAR VOLUME 92 fL (79.0-98.0); MONOCYTES # (AUTO) 0.5 K/uL (0.0-1.0); MONOCYTES % (AUTO) 4.4 % (1.7-9.3); NEUTROPHILS % (AUTO) 83.6 % (40.0-70.0); PLATELET COUNT (AUTO) 201 K/uL (130-430); RED BLOOD CELL COUNT(AUTO) 2.77 MIL/uL (4.2-6.2); RED CELL DISTRIBUTION WIDTH 17.3 % (9.0-15.0); WHITE BLOOD COUNT (AUTO) 10.8 K/uL (4.8-10.8)
[2022-02-26 07:27] LABS: ALBUMIN 2.2 g/dL (3.4-4.8); ASPARTATE AMINOTRANSFERASE 16 U/L (10-37); CALCIUM 7.8 mg/dL (8.4-11.0); CREATININE 1.02 mg/dL (0.55-1.30); GLUCOSE 128 mg/dL (70-99); TOTAL BILIRUBIN 0.6 mg/dL (0.0-1.0); UREA NITROGEN, BLOOD 33 mg/dL (8-21)
[2022-02-26 08:00] VITALS: BP_SYST 162
[2022-02-26 08:03] LABS: ANION GAP 12 (5-15); POTASSIUM 4.3 mmol/L (3.5-5.1); SODIUM SERUM 152 mmol/L (136-145)
--- NOTE | 2022-02-26 08:15 | NUR ---
Dr Portillo at the bedside, aware of bloody ria red stools overnight. Md aware of BP 162/112 this morning. Pt with poor PO intake, MD to order IVF. Will continue to monitor pt's condtion.
[2022-02-26 08:38] LABS: ALANINE AMINOTRANSFERASE 3 U/L (12-78)
--- NOTE | 2022-02-26 08:38 | NUR ---
Notified CITLALY Griffin regarding chloride level elevated 112. no new orders. Addendum: 02/26/22 at 1831 by Sukumar Quiroga risk professional Chloride level 122, not 112.
[2022-02-26 08:40] LABS: CHLORIDE 122 mmol/L (98-107)
[2022-02-26] MEDS: MUPIROCIN 2% TOPICAL OINTMENT 22 GM NS SCH ×2 (09:00→20:29)
[2022-02-26] MEDS: BALSAM PERU/CASTOR OIL 56.7 GM OINT...G. TP SCH (09:00)
[2022-02-26] MEDS: POTASSIUM CHLORIDE 20 MEQ TAB.PRT.SR PO SCH ×2 (09:15→20:10)
[2022-02-26] MEDS: CARVEDILOL 3.125 MG TABLET (COREG) PO SCH ×2 (09:15→20:28)
[2022-02-26] MEDS: PANTOPRAZOLE SODIUM 40 MG/VIAL (PROTONIX) IVP SCH (09:15)
[2022-02-26] MEDS: POLYETHYLENE GLYCOL 3350, 17 GM/ POWD.PACK PO SCH ×2 (09:16→20:11)
[2022-02-26] MEDS: ATORVASTATIN 10 MG TABLET PO SCH (09:16)
[2022-02-26] MEDS: CARBIDOPA/LEVODOPA 25/100 MG TABLET PO SCH ×3 (09:16→20:11)
[2022-02-26] MEDS: MULTIVITS,CA,MINERALS/IRON/FA 1 TABLET PO SCH (09:16)
[2022-02-26] MEDS: predniSONE 10 MG TABLET PO SCH (09:16)
[2022-02-26] MEDS ORDERED: D5W 500 ML IV ONE (09:45)
--- NOTE | 2022-02-26 10:27 | NUR ---
Nutrition F/U Admitting Diagnosis Encephalopathy, Sepsis, Hypokalemia Reviewed Pertinent Medical/Surgical Hx Medical Record Patient (visual assessment, patient is nonverbal) Medical History Comment: Alzheimers/dementia, HLD, s/p permanent pacemaker placement, Parkinsons disease, HTN per physician notes SARS-CoV-2 Ag (Rapid) Negative 02/20 Subjective Information: RD visited the patient, patient is nonverbal, sitting up in bed mumbling softly to himself. A few Ensure Enlive containers are at bedside, staff is assisting pt w/ feeding. (02/21) ST recommendation: pureed diet w/ NTL, 1:1 feeder, full aspiration precautions. Per nursing documentation, abdomen is soft, distended, +bowel sounds x4, last BM 02/25 x6. Luis Fernando score 12, noted w/ multiple skin tears per MD note and nursing documentation, BLE 2+ pitting edema. Pt not yet meeting nutritional needs. Current Diet Order/Nutrition Support Pureed NTL x4 days; pureed diet includes Ensure Enlive TID (provides 1050 kcals/d, 60 gm protein/d) Education Provided Not Indicated Pertinent Medications: Miralax, Protonix, Prednisone, Lipitor, K-Dur Pertinent Labs: Na 152 H, BG range 127-139 H Height (Feet) 6 feet Height (Inches) 0.00 inches Weight (Pounds) 180 pounds Weight (Calculated Kilograms) 81.437438 kilograms Patient Weight 81.647 kg Body Mass Index 24.41 kg/m2 %IBW 101 [place]/Adjusted Body Weight 178#/80.9 kg Recent Weight Change No - no wt loss per product safety engineer Weight Status Appropriate Last BM: 02/25 x6 Usual Diet At Home: Pureed NTL per product safety engineer Skin Integrity Comment: Luis Fernando score 12 - multiple skin tears noted to L/R arms, L lower leg, L upper leg, R hand and R leg; sacrum-unstageable, present on admission, yellow slough Current % PO: 0-75%, ~30% on average x12 meals 02/21-02/25 Estimated Energy Expenditure (kcals/day) 7449-5233 kcals/day (25-30 kcals/kg CBW d/t sepsis vs age/bed bound) Estimated Protein Required (g/day) 123-164 g/day (1.5-2 g/kg CBW d/t sepsis) Estimated Fluid Required (l/day) 2-2.5 L/day (1 ml/kcal/day for maintenance) Problem/Etiology/Signs/Symptoms At increased risk for malnutrition and weight loss R/T metabolic demands a/w sepsis AEB negligible PO intake. Expected Outcomes/Goals Monitor tolerance of intake w/ goal of pt meeting greater than 75% of estimated needs, labs trending WNL, normal GI function, skin integrity, wt maintenance. Dietitian Recommendations * Continue w/ pureed NTL diet (includes Ensure Enlive TID) * Encourage PO intake * Consider appetite stimulant if not contraindicated Follow Up High Risk: F/U in 2-3 days
[2022-02-26 12:00] VITALS: BP_SYST 148
[2022-02-26 16:28] VITALS: BP_SYST 149
--- NOTE | 2022-02-26 17:55 | NUR ---
Legs and arm drsg changes done per wound care nurse, pt tolerated well. at the bedside and updated her on pts' condition. Also sacral decub drsg was changed per wound care nurse instructions.
--- NOTE | 2022-02-26 19:45 | NUR ---
Initial note At initial assessment, patient is resting in bed, stable, no signs of respiratory distress. Patient is showing severe pain per flacc scale used. Plan of care for the evening is communicated with the patient and his at bedside. Patient is unable to demonstrate correct usage of call light at this time due to cognitive impairment; frequent rounding will be completed throughout the night to meet all patient needs. Bed is locked, alarmed, and at the lowest level. Fall safety education provided. Patient will be turned [id number] throughout the shift. Fall, safety, aspiration, isolation, and respiratory precautions will be taken throughout the shift.
--- NOTE | 2022-02-26 19:58 | NUR ---
COMMUNICATION W/ DR. LINETTE SUE PAGED, IT WAS COMMUNICATED TO HIM THAT PATIENT IS IN SEVERE PAIN, CONTINUOUSLY MOANING AND GROANING LOUDLY. IT WAS ALSO COMMUNICATED TO DR. SUE THAT PATIENT IS INCONTINENT WITH OPEN SACRAL WOUNDS. LASTLY, IT WAS COMMUNICATED TO HIM THAT AT BEDSIDE IS VERY CONCERNED ABOUT THE PATIENT'S BREATHING, ALTHOUGH ON ASSESSMENT, NO DISTRESS NOTED. DR. SUE GAVE ORDERS FOR NORCO 5-325 Q4H PRN SEVERE PAIN, CISSE CATHETER INSERTION, AND BREATHING TREATMENTS [id number] PRN SOB OR WHEEZING. ALL ORDERS READ BACK, VERIFIED, AND WILL BE CARRIED OUT IMMEDIATELY.
[2022-02-26 20:00] VITALS: BP_SYST 95
--- NOTE | 2022-02-26 20:05 | NUR ---
Pain medication/ Med pass note PRN medication for severe pain given at this time with patient's scheduled medications given at this time; patient tolerated well. Call light is placed within reach. Bed is locked, alarmed, and at the lowest level.
[2022-02-26] MEDS: MINERAL OIL 30 ML UDC PO SCH (20:11)
[2022-02-26] MEDS: HYDROCORTISONE ACETATE 1 SUPP (ANUSOL HC) RC SCH (20:11)
[2022-02-26] MEDS: HYDROcodone/ACETAMIN 5-325 MG TAB (NORCO/ VICODIN) PO PRN (20:12)
[2022-02-26] MEDS: LEVOFLOXACIN 250 MG/D5W 50 ML IV SCH (20:29)
[2022-02-26] MEDS: IPRATROPIUM/ALBUTEROL SULFATE 3 ML AMPUL.NEB (DUONEB) INH PRN (21:27)
--- NOTE | 2022-02-26 21:30 | NUR ---
Hygiene care note Patient had a large void. Hygiene care is provided at this time, fresh linens provided, and patient is repositioned for comfort. Patient tolerated well. Call light placed within reach. Bed is locked, alarmed, and at the lowest level.
[2022-02-26 21:37] VITALS: BP_SYST 95
[2022-02-27] VITALS: BP_SYST 95
[2022-02-27] MEDS: HYDROcodone/ACETAMIN 5-325 MG TAB (NORCO/ VICODIN) PO PRN ×2 (02:45→17:07)
--- NOTE | 2022-02-27 06:14 | NUR ---
Closing Note No bowel movements tonight. Patient is still confused although he seems a bit more alert tonight compared to the previous two nights. He opened his eyes more often and his speech is more understandable. He started the shift with severe pain, but after new order of norco was given, patient was able to feel more comfortable and fall asleep. At this time, patient is resting in bed, stable, no signs of respiratory distress. Call light placed within reach. Bed is locked, alarmed, and at the lowest level. Patient has been turned [id number] during the shift. Fall, safety, aspiration, respiratory, and isolation precautions have been in placed throughout the shift. Will continue to monitor until report is given at bedside to am nurse.
--- NOTE | 2022-02-27 08:00 | NUR ---
patient asleep easy arousal in light stimuli. no s/s of distress, moaning at time. pain medication was administered by night nurse earlier. informed about the poc.hygiene care provided. bed is low and lock position. alarm on. contact isolation precaution maintained.
[2022-02-27 08:07] LABS: BASOPHILS % (AUTO) 0.3 % (0.0-2.0); EOSINOPHILS # (AUTO) 0.2 K/uL (0.0-0.4); EOSINOPHILS % (AUTO) 2.9 % (0.0-4.0); HEMATOCRIT 23.8 % (36-54); HEMOGLOBIN 7.8 g/dL (14.0-18.0); LYMPHOCYTES # (AUTO) 0.7 K/uL (1.0-5.5); LYMPHOCYTES % (AUTO) 8.9 % (20.5-51.5); MEAN CORPUSCULAR HEMOGLOBIN 31 pg (27-31); MEAN CORPUSCULAR HGB CONC 33 % (32-36); MEAN CORPUSCULAR VOLUME 94 fL (79.0-98.0); MONOCYTES # (AUTO) 0.4 K/uL (0.0-1.0); NEUTROPHILS % (AUTO) 82.9 % (40.0-70.0); PLATELET COUNT (AUTO) 190 K/uL (130-430); RED BLOOD CELL COUNT(AUTO) 2.54 MIL/uL (4.2-6.2); RED CELL DISTRIBUTION WIDTH 17.6 % (9.0-15.0); WHITE BLOOD COUNT (AUTO) 8.4 K/uL (4.8-10.8)
[2022-02-27 08:13] VITALS: BP_SYST 87
--- NOTE | 2022-02-27 08:24 | NUR ---
Discharge Planning: DCP followed up with pt referral to [facility] P#[phone] accepted to [facility]. Pending approval. CM aware and will speak to . Addendum: 02/27/22 at 1443 by Kanwal DE LA O DCP faxed updated to [facility] P#[phone] F#[phone] DCP spoke to Rema in admissions pt will go to [facility]. Pending DC order.
[2022-02-27 08:39] LABS: ALANINE AMINOTRANSFERASE 7 U/L (12-78); ALBUMIN 2.1 g/dL (3.4-4.8); ANION GAP 11 (5-15); ASPARTATE AMINOTRANSFERASE 16 U/L (10-37); CALCIUM 7.7 mg/dL (8.4-11.0); CREATININE 1.11 mg/dL (0.55-1.30); GLUCOSE 121 mg/dL (70-99); SODIUM SERUM 155 mmol/L (136-145); TOTAL BILIRUBIN 0.6 mg/dL (0.0-1.0); UREA NITROGEN, BLOOD 34 mg/dL (8-21)
[2022-02-27] MEDS: CARBIDOPA/LEVODOPA 25/100 MG TABLET PO SCH ×3 (08:57→17:09)
[2022-02-27] MEDS: POTASSIUM CHLORIDE 20 MEQ TAB.PRT.SR PO SCH (08:57)
[2022-02-27] MEDS: ATORVASTATIN 10 MG TABLET PO SCH (08:57)
[2022-02-27] MEDS: PANTOPRAZOLE SODIUM 40 MG/VIAL (PROTONIX) IVP SCH (08:57)
[2022-02-27] MEDS: MULTIVITS,CA,MINERALS/IRON/FA 1 TABLET PO SCH (08:58)
[2022-02-27] MEDS: POLYETHYLENE GLYCOL 3350, 17 GM/ POWD.PACK PO SCH (08:58)
[2022-02-27] MEDS: predniSONE 10 MG TABLET PO SCH (08:58)
[2022-02-27] MEDS: MUPIROCIN 2% TOPICAL OINTMENT 22 GM NS SCH (09:00)
[2022-02-27] MEDS: BALSAM PERU/CASTOR OIL 56.7 GM OINT...G. TP SCH (09:00)
[2022-02-27 09:17] LABS: CHLORIDE 123 mmol/L (98-107)
[2022-02-27] MEDS ORDERED: COMMUNICATION ORDER XX ONE (11:00)
[2022-02-27] MEDS ORDERED: D5W 1,000 ML IV SCH (11:00)
[2022-02-27] MEDS: CARVEDILOL 3.125 MG TABLET (COREG) PO SCH (11:46)
[2022-02-27 11:54] VITALS: BP_SYST 102
--- NOTE | 2022-02-27 14:00 | NUR ---
Hygiene care note Patient had liquid blood bm no food particles noted. . Hygiene care is provided at this time, fresh linens provided, and patient is repositioned for comfort. Patient tolerated well. Call light placed within reach. Bed is locked, alarmed, and at the lowest level. spouse at the bedside and able to speak with dr. parra earlier.
[2022-02-27 15:54] VITALS: BP_SYST 106
[2022-02-27] MEDS: IPRATROPIUM/ALBUTEROL SULFATE 3 ML AMPUL.NEB (DUONEB) INH PRN (17:18)
--- NOTE | 2022-02-27 17:25 | NUR ---
INFORMED RN LUCIO THAT THE TELE MONITOR IS OUT OF BATTERY
--- NOTE | 2022-02-27 18:32 | NUR ---
michaela venous doppler done at the bedside.
--- NOTE | 2022-02-27 19:32 | NUR ---
pt no s/s of distress. concerned of cough, of breathing treatment. endorsed care to peter carias.
[2022-02-27 23:30] VITALS: BP_SYST 137
[2022-02-28] MEDS: POLYETHYLENE GLYCOL 3350, 17 GM/ POWD.PACK PO SCH (00:28)
[2022-02-28] MEDS: MINERAL OIL 30 ML UDC PO SCH (00:28)
[2022-02-28] MEDS: LEVOFLOXACIN 250 MG/D5W 50 ML IV SCH (00:28)
[2022-02-28] MEDS: HYDROCORTISONE ACETATE 1 SUPP (ANUSOL HC) RC SCH (00:29)
[2022-02-28] MEDS: CARBIDOPA/LEVODOPA 25/100 MG TABLET PO SCH (00:29)
[2022-02-28] MEDS: POTASSIUM CHLORIDE 20 MEQ TAB.PRT.SR PO SCH (00:29)
[2022-02-28] MEDS: MUPIROCIN 2% TOPICAL OINTMENT 22 GM NS SCH (00:30)
[2022-02-28] MEDS: CARVEDILOL 3.125 MG TABLET (COREG) PO SCH (00:32)
--- NOTE | 2022-02-28 00:45 | NUR ---
Went in room with BATCH ROOM TECHNICIAN to turn and clean patient. Patient had palpable pulse, but was noted to be pale and bradypneic. Attempts to stimulate were unsuccessful. mold shop supervisor Lev came to bedside. Patient's pupils noted to be fixed and dilated, no apical pulse able to be auscultated.
--- NOTE | 2022-02-28 02:15 | NUR ---
Patient's Jennifer informed of patient's . She stated that she plans to come to the hospital soon and that they have no mortuary set up but are considering [facility] in [place]. ER doctor has been paged and checklist is being filled out.
--- NOTE | 2022-02-28 04:52 | NUR ---
Dr. Brito at bedside, pronounced at 0452.
== END 2022-02-28 00:45 | DRG 871 ==
LOC: SED 05:27 → SDS 08:15 → STU 09:33 → SDS 09:36 → STU 09:37
PROVIDERS: ADMIT Internal Medicine; ATTEND Internal Medicine
DX: A41.9 Sepsis, unspecified organism (principal); J18.9 Pneumonia, unspecified organism; J96.01 Acute respiratory failure with hypoxia; E43 Unspecified severe protein-calorie malnutrition; G93.41 Metabolic encephalopathy; I48.21 Permanent atrial fibrillation; E87.6 Hypokalemia; G20 Parkinson's disease; I10 Essential (primary) hypertension; F02.80 Dementia in other diseases classified elsewhere, unspecified severity, without behavioral disturbance, psychotic disturbance, mood disturbance, and anxiety; L98.9 Disorder of the skin and subcutaneous tissue, unspecified; E78.5 Hyperlipidemia, unspecified; K64.9 Unspecified hemorrhoids; D64.9 Anemia, unspecified; Z20.822 Contact with and (suspected) exposure to COVID-19; Z91.013 Allergy to seafood; Z79.899 Other long term (current) drug therapy; Z95.0 Presence of cardiac pacemaker; Z86.73 Personal history of transient ischemic attack (TIA), and cerebral infarction without residual deficits; Z79.01 Long term (current) use of anticoagulants; Z74.01 Bed confinement status; Z68.24 Body mass index [BMI] 24.0-24.9, adult
CPT/HCPCS: 36415; 70450-TC; 71045; 74018; 76376; 80048; 80053; 82009; 82272; 82550; 82962; 83605; 83880; 84484; 85025; 85610-TC; 85730-TC; 86140; 87040; 87081; 92610-GN; 93005; 93306; 93970; 94640; 99285; C9113; G0378; G0480; G0481; J1940; J1956; J3480; J7040; J7512